=== PATIENT | female | born 2000 | race Caucasian/White ===

== ENCOUNTER 2024-09-21 15:15 | Emergency (ER) | payer MEDICAID, SELFPAY ==
[2024-09-21 15:16] VITALS: BP 117/61; PULSE 60; RESP 16; TEMP 36.6; O2SAT 100; BMI 23.8
--- NOTE | 2024-09-21 15:37 | PC.NURSE ---
DR LEONG AT BEDSIDE
--- NOTE | 2024-09-21 15:41 | XR_ITS ---
PROCEDURE INFORMATION: Exam: XR Abdomen Exam date and time: 09/21/2024 4:51 PM Age: 24 years old Clinical indication: Constipation; Additional info: Severe contsipation TECHNIQUE: Imaging protocol: Radiologic exam of the abdomen. Views: Frontal supine view of the abdomen. 1 View. COMPARISON: No relevant prior studies available. FINDINGS: Gastrointestinal tract: Constipation in the right colon. Organs: IUD in the pelvis Bones/joints: Unremarkable. IMPRESSION: Constipation in the right colon.
--- NOTE | 2024-09-21 15:49 | ED_ITS ---
Discharge Plan Disposition Patient Disposition: Home, Self-Care Chief Complaint: Recheck/Abnormal Lab/Rx Prescriptions Prescriptions: No Action No Known Home Medications Referrals Follow up/Referrals: Provider,Crystal, [Primary Care Provider] - See instructions Activity Restrictions/Add. Instructions Additional Instructions/Restrictions: Bowel regimen as discussed. Follow-up with your family doctor for this visit to the emergency department. Return to your family doctor if you have any other concerning signs or symptoms. Clinical Impressions Clinical Impression: Constipation Print Language Print Language: Lithuanian Discharge ED Provider: Conner Suarez General Adult HPI <CATRACHITA Porter - Last Filed: 09/21/24 15:49> General Chief complaint: Recheck/Abnormal Lab/Rx Stated complaint: Unable to have bowel movement Time Seen by Provider: 09/21/24 15:36 Mode of Arrival: Ambulatory Source of Information: Patient Limitations: No Limitations Description of Symptoms (Recalled from ER Triage Doc. by RN): PT REPORTS NO BM X 2 WEEKS. HAS USED MIRALAX, DUCOLAX, AND OTHER OTC MEDS WITHOUT RESULTS Related Data Home Medications ?Medication ?Instructions ?Recorded ?Confirmed No Known Home Medications 01/31/19 01/31/19 Allergies Allergy/AdvReac Type Severity Reaction Status Date / Time No Known Allergies Allergy Verified 01/31/19 21:27 <Conner Suarez MD - Last Filed: 09/21/24 18:25> History of Present Illness HPI narrative: Please note that above description of symptoms, in this electronic medical record under categorization of recalled from ER triage doctor by RN are reflective of an initial nursing assessment, however, is not reflective of my full history and physical exam that was personally taken and clarified. Consequentially, this preceding description of symptoms, which may include the patient's categorized chief complaint in the EMR, do not reflect my personal clinical impression, and the ultimate description of history of present illness and patient stated complaints should be deferred to this section of the note. Unless stated otherwise or congruent with this section of the note, additional signs, symptoms, or incongruence should be interpreted as inaccurate with my clinical impression. PFSH <CATRACHITA Porter - Last Filed: 09/21/24 15:49> [facility] Disclaimer: The information contained in this section may have been updated after the patient was seen, as this information can be updated by other users. Social History Smoking Status: Never smoker alcohol intake: never current occupational status: student Travel in the last 8 weeks: None <Conner Suarez MD - Last Filed: 09/21/24 18:25> ROS Obtained: Yes All systems reviewed & no additional complaints except as documented Physical Exam <Conner Suarez MD - Last Filed: 09/21/24 18:25> General General appearance: alert Head Head exam: atraumatic and normocephalic Eye Eye exam: Present normal appearance, PERRL and EOMI Neck Neck exam: Present normal inspection, full ROM and trachea midline Respiratory Respiratory exam: Absent respiratory distress, wheezes, stridor, accessory muscle use or prolonged expiratory phase Cardiovascular Cardiovascular exam: Present other (Pulses equal symmetric in upper and lower extremities) Abdominal Exam Abdominal exam: Present soft; Absent distention, tenderness or pulsatile mass Extremities Exam Extremities exam: Absent edema Neurological Exam Neurological exam: Present alert, oriented X3 and CN II-XII intact; Absent motor sensory deficit Skin Skin exam: Present warm and dry; Absent diaphoresis or erythema Medical Decision Making <CATRACHITA Porter - Last Filed: 09/21/24 15:49> Medical Records Screening: Per USPSTF and CDC recommendations, given the prevalence of disease in our region, it is our hospital?s policy to screen for HIV and viral Hepatitis for all patients aged 18 and over and those with ongoing risk factors. Vital Signs: 09/21/24 15:16 Temperature 97.9 F Temperature Source Oral Pulse Rate [Radial] 60 Respiratory Rate 16 Blood Pressure [Right Arm] 117/61 Blood Pressure Mean [Right Arm] 79 Blood Pressure Source [Right Arm] Automatic Cuff Blood Pressure Position [Right Arm] Sitting 02 Sat by Pulse Oximetry 100 Oxygen Delivery Method Room Air Lab Data Lab Results 09/21/24 15:41: Urine Color Yellow, Urine Appearance Clear, Urine pH 6.0, Ur Specific [place] >= 1.030, Urine Protein Negative, Urine Glucose (UA) Negative, Urine Ketones Negative, Urine Blood Negative, Urine Nitrate Negative, Urine Bilirubin Negative, Urine Urobilinogen 0.2, Ur Leukocyte Esterase Trace, Urine RBC 3-5, Urine WBC 10-20, Ur Squamous Epith Cells 3-5, Urine Bacteria 1+, Urine Mucus 3+, Urine HCG, Qual Negative Orders (Tests/Meds): ED MEDICATIONS Discontinued Medications Generic Name Dose Route Start Last Admin Trade Name Freq PRN Reason Stop Dose Admin Magnesium Hydroxide 30 ml 09/21/24 15:41 09/21/24 15:57 Milk Of Magnesia 30ml Udc PO 09/21/24 15:42 30 ml ONCE ONE Administration ORDERS Category Date Time Status KUB (single view) [XR KUB] Stat Exams 09/21/24 15:41 Taken UA [Urinalysis and Microscopic] Stat Lab 09/21/24 15:41 Completed Urine , HCG Qual. Stat Lab 09/21/24 15:41 Completed Urine Culture Stat Micro 09/21/24 15:41 Received <Conner Suarez MD - Last Filed: 09/21/24 18:25> Medical Records Medical records reviewed: Yes I reviewed the patient's medical records. Yazan Inquiry Pt receiving controlled substance: No Yazan was queried for this patient: No Vital Signs: 09/21/24 15:16 Temperature 97.9 F Temperature Source Oral Pulse Rate [Radial] 60 Respiratory Rate 16 Blood Pressure [Right Arm] 117/61 Blood Pressure Mean [Right Arm] 79 Blood Pressure Source [Right Arm] Automatic Cuff Blood Pressure Position [Right Arm] Sitting 02 Sat by Pulse Oximetry 100 Oxygen Delivery Method Room Air Lab Data Lab Results 09/21/24 15:41: Urine Color Yellow, Urine Appearance Clear, Urine pH 6.0, Ur Specific [place] >= 1.030, Urine Protein Negative, Urine Glucose (UA) Negative, Urine Ketones Negative, Urine Blood Negative, Urine Nitrate Negative, Urine Bilirubin Negative, Urine Urobilinogen 0.2, Ur Leukocyte Esterase Trace, Urine RBC 3-5, Urine WBC 10-20, Ur Squamous Epith Cells 3-5, Urine Bacteria 1+, Urine Mucus 3+, Urine HCG, Qual Negative Orders (Tests/Meds): ED MEDICATIONS Discontinued Medications Generic Name Dose Route Start Last Admin Trade Name Freq PRN Reason Stop Dose Admin Magnesium Hydroxide 30 ml 09/21/24 15:41 09/21/24 15:57 Milk Of Magnesia 30ml Udc PO 09/21/24 15:42 30 ml ONCE ONE Administration ORDERS Category Date Time Status KUB (single view) [XR KUB] Stat Exams 09/21/24 15:41 Taken UA [Urinalysis and Microscopic] Stat Lab 09/21/24 15:41 Completed Urine , HCG Qual. Stat Lab 09/21/24 15:41 Completed Urine Culture Stat Micro 09/21/24 15:41 Received Medical Decision Narrative: 24-year-old female history of diabetes presenting with constipation . states that she has not had a bowel movement in about 2 weeks. Went to her primary care physician. States that she received soapsuds enema and took collects, 2 capfuls of MiraLAX for the last 3 days, had small liquid bowel movement. Having fullness in her left lower quadrant, no other symptoms. History was obtained via conversation with patient. On arrival, patient hemodynamically stable, alert, oriented x4, appropriate, GCS 15, moving all extremities spontaneously, pupils equal and reactive to light. Full physical exam performed and significant for very well-appearing female in no acute distress. Differential includes constipation, , UTI, nephrolithiasis, among others. Patient placed on continuous cardiac monitoring and continuous pulse ox with ini tial blood pressure 117/61, heart rate 60, saturation 100% on room air. Patient was given medical magnesium for symptomatic management and correction of underlying abnormalities. Workup independently interpreted and significant for nonactionable urinalysis, negative hCG.. On independent interpretation of imaging, patient has stool impaction on KUB. See radiology read for full review of final results. On reevaluation, patient without bowel movement with milk of magnesia. Was given milk and molasses enema. Patient had small bowel movement. Given patient presentation, workup, history, this most likely represents acute constipation. Patient was given bowel regimen for home-going. Because patient at baseline without signs or symptoms of clinical decompensation, deemed appropriate for discharge. Results were relayed to patient who voiced understanding and were agreeable to outpatient management and follow up. I discussed my clinical impression with patient and answered all questions. At this time, the evidence for any other entities in the differential is insufficient to warrant any further testing or ED observation. This was explained as well. Advisory was given that persistent or worsening symptoms require further evaluation. I confirmed the understanding of this discussion. Corrections Officer disclaimer Much of this encounter note is an electronic big data solutions architect spoken language to printed text. Electronic big data solutions architect of the spoken language may permit errors. Although I have reviewed the note, some errors may still exist. Critical Care <Conner Suarez MD - Last Filed: 09/21/24 18:25> Critical Care Time Critical Care Time: No
[2024-09-21] MEDS: MILK OF MAGNESIA 30ML UDC 30 ML PO (15:57)
[2024-09-21 16:52] LABS: Appearance,Urine CLEAR (Clear); Bilirubin,Urine Negative (Negative); Blood, Urine Negative (Negative); Color,Urine YELLOW (Yellow); Glucose,Urine (UA) Negative (Negative); Ketones,Urine Negative (Negative); Leukocyte Esterase,Urine TRACE (Negative); Microscopic, Urine URINE MICROSCOPIC (MICROSCOPIC); Nitrate,Urine Negative (Negative); Protein,Urine Negative (Negative); Specific Gravity, Urine >= 1.030 (1.005-1.030); Urobilinogen,Urine 0.2 EU/dl (0.2)
[2024-09-21 16:59] LABS: Urine Pregnancy, HCG Qual. Negative (Negative)
--- NOTE | 2024-09-21 17:03 | PC.NURSE ---
PT RETURNED FROM XR
[2024-09-21 17:10] LABS: Bacteria,Urine 1+ /lpf; Mucus,Urine 3+ /lpf
--- NOTE | 2024-09-21 18:03 | PC.NURSE ---
administered milk and molassses enema, pt tolerated well
[2024-09-21 18:28] VITALS: BP 124/79; PULSE 80; RESP 18; TEMP 36.9; O2SAT 98
== END 2024-09-21 18:30 | disposition home or self-care (01) ==
PROVIDERS: Emergency Provider Emergency Medicine
DX: K59.00 Constipation, unspecified (principal)
CPT/HCPCS: 74018; 81001; 81025; 87086; 99283